=== PATIENT | male | born 1980 | race Hispanic/Latino ===

== ENCOUNTER 2024-09-12 02:35 | Emergency (ER) | payer OTHER ==
[~2024-09-12] VITALS: Ht 180.3 cm; Wt 99.3 kg
[2024-09-12] MEDS: LACTATED RINGERS 1000ML IV STA ×2 (03:22→04:37)
[2024-09-12 03:23] LABS: BASOPHILS # (AUTO) 0.04 K/uL (0.00-0.20); BASOPHILS % (AUTO) 0.5 % (0.0-5.0); EOSINOPHILS # (AUTO) 0.15 K/uL (0.00-0.70); EOSINOPHILS % (AUTO) 1.8 % (0.0-8.0); HEMATOCRIT 37.9 % (42-54); IMMATURE GRANULOCYTE ABSOLUTE 0.06 K/uL (0-1); LYMPHOCYTES # (AUTO) 2.1 K/uL (1.0-4.8); LYMPHOCYTES % (AUTO) 25.3 % (21.0-51.0); MEAN CORPUSCULAR HEMOGLOBIN 28.7 pg (27.0-33.0); MEAN CORPUSCULAR HGB CONC 34.8 g/dL (32.0-36.0); MEAN CORPUSCULAR VOLUME 82.4 fL (79-99); MONOCYTES # (AUTO) 0.6 K/uL (0.1-1.0); MONOCYTES % (AUTO) 6.9 % (3.0-13.0); NEUTROPHILS # (AUTO) 5.4 K/uL (1.8-7.7); NEUTROPHILS % (AUTO) 64.8 % (40.0-77.0); PLATELET COUNT (AUTO) 164 K/uL (130-400); RED CELL DISTRIBUTION WIDTH 12.1 % (11.0-15.5); WHITE BLOOD COUNT (AUTO) 8.3 K/uL (4.8-10.8)
[2024-09-12] MEDS: ketOROlac 30MG VIAL (30MG/ML) IVP ONE (03:23)
[2024-09-12] MEDS: CYCLOBENZAPRINE HCL 10 MG TABLET PO ONE (03:23)
[2024-09-12 03:33] LABS: CREATININE 0.7 mg/dL (0.5-1.3)
--- NOTE | 2024-09-12 04:25 | ERN ---
General Chief Complaint: Neck Pain Stated Complaint: C/O NECK PAIN WITH SHOULDER,JOINT PAIN Time Seen by MD: 02:44 Source: patient History of Present Illness Initial Comments Patient has new onset pain across the top of his chest his right neck to the parietal region, both shoulders both elbows in his hands have joint pain. He has no nausea or vomiting or diarrhea. No fever no cough no upper respiratory tract infections he works as a pipefitter welder outside no past medical history Timing/Duration: 4-6 hours Allergies: Coded Allergies: No Known Allergies (Unverified Allergy, Unknown, 09/12/24) Past Medical History Past Medical History: No Pertinent History Past Surgical History: None Constitutional: (-) chills, (-) diaphoresis, (-) fever, (-) malaise, (-) wea kness, (-) other documentation EENTM: (-) eye pain, (-) blurred vision, (-) tearing, (-) double vision, (-) ear pain, (-) ear discharge, (-) nose pain, (-) nose congestion, (-) throat pain, (-) Throat swelling, (-) mouth pain, (-) tooth pain, (-) mouth swelling, (-) other documentation Respiratory: (-) cough, (-) orthopnea, (-) short of breath, (-) stridor, (-) wheezing, (-) other documentation Cardiovascular: (+) chest pain, (+) edema, (+) palpitations, (+) syncope, (+) dyspnea on exertion, (+) other documentation Gastrointestinal/Abdominal: (-) nausea, (-) vomiting, (-) diarrhea, (-) abdominal pain, (-) abdominal distention, (-) constipation, (-) rectal bleeding, (-) dark stool/melena, (-) other documentation Musculoskeletal: (+) Neck pain, (+) back pain, (+) Flank Pain, (+) joint pain, (+) joint swelling, (+) muscle pain, (+) muscle stiffness, (+) gout, (+) other documentation Physical Exam General Appearance: (+) mild distress Orientation: (+) alert, (+) oriented x 3 Head/Face Trauma: No Eye: bilateral eye normal inspection, bilateral eye PERRL, bilateral eye EOMI Ear, Nose, Throat: (+) hearing grossly normal, (+) normal ENT inspection, (+) moist mucous membraine Neck: (+) normal inspection, (+) supple, (+) full range of motion, (+) no JVD Respiratory: (+) lungs clear, (+) well ventilated Heart: (+) regular, (+) no gallop Vascular: (+) no edema Gastrointestinal: (+) soft, (+) non-tender, (+) bowel sound present Results Laboratory and Microbiology Lab and Micro Result Laboratory Tests Test 09/12/24 03:17 09/12/24 04:41 09/12/24 04:58 White Blood Count 8.3 K/uL (4.8-10.8) Red Blood Count 4.60 MIL/uL (4.50-6.20) Hemoglobin 13.2 g/dL (14.0-18.0) L Hematocrit 37.9 % (42-54) L Mean Corpuscular Volume 82.4 fL (79-99) Mean Corpuscular Hemoglobin 28.7 pg (27.0-33.0) Mean Corpuscular Hemoglobin Concent 34.8 g/dL (32.0-36.0) Red Cell Distribution Width 12.1 % (11.0-15.5) Platelet Count 164 K/uL (130-400) Mean Platelet Volume 10.9 fL (7.5-10.5) H Immature Granulocyte % (Auto) 0.7 % (0-1) Neutrophils (%) (Auto) 64.8 % (40.0-77.0) Lymphocytes (%) (Auto) 25.3 % (21.0-51.0) Monocytes (%) (Auto) 6.9 % (3.0-13.0) Eosinophils (%) (Auto) 1.8 % (0.0-8.0) Basophils (%) (Auto) 0.5 % (0.0-5.0) Neutrophils # (Auto) 5.4 K/uL (1.8-7.7) Lymphocytes # (Auto) 2.1 K/uL (1.0-4.8) Monocytes # (Auto) 0.6 K/uL (0.1-1.0) Eosinophils # (Auto) 0.15 K/uL (0.00-0.70) Basophils # (Auto) 0.04 K/uL (0.00-0.20) Absolute Immature Granulocyte (auto 0.06 K/uL (0-1) Nucleated Red Blood Cells 0.0 % (0.0-0.19) Sodium Level 140 mmol/L (136-145) Potassium Level 4.0 mmol/L (3.5-5.1) Chloride Level 106 mmol/L (101-111) Carbon Dioxide Level 27 mmol/L (21-32) Blood Urea Nitrogen 19 mg/dL (7-18) H Creatinine 0.7 mg/dL (0.5-1.3) Glomerular Filtration Rate Calc 118 mL/min (>90) Random Glucose 96 mg/dL (70-105) Total Calcium 8.4 mg/dL (8.5-10.1) L Troponin I High Sensitivity 5 ng/L (4-75) Influenza Type A Antigen Negative For Type A Influenza Type B Antigen Negative For Type B SARS-CoV-2 Antigen (Rapid) PRESUMPTIVE NEGATIVE Group A Streptococcus Rapid negative (NEGATIVE) Urine Color YELLOW (YELLOW) Urine Appearance CLEAR (CLEAR) Urine pH 6.0 (5.0-8.0) Urine Specific [place] 1.027 (1.001-1.031) Urine Protein NEGATIVE mg/dL (NEGATIVE) Urine Glucose (UA) NEGATIVE mg/dL (NEGATIVE) Urine Ketones NEGATIVE mg/dL (NEGATIVE) Urine Occult Blood NEGATIVE (NEGATIVE) Urine Nitrate NEGATIVE (NEGATIVE) Urine Bilirubin NEGATIVE mg/dL (NEGATIVE) Urine Urobilinogen 2.0 mg/dL (0.2-1.0) H Urine Leukocyte Esterase NEGATIVE [place]/uL MDM Patient has a plethora of complaints and explanations for them could range from dehydration to overexertion to urinary tract infection to influenza to an acute CT. I have ordered the chest pain protocol labs and bolused the patient 2 L of fluid. I will also swab his nose for COVID strep and influenza. Patient's laboratory studies have all returned negative. After 2 L of fluid the patient feels better and ready to go home. He can follow-up with his primary care doctor. We will give him a note for work. ED Course Orders Procedure Category Date Status Time Basic Metabolic Panel LAB 09/12/24 Complete 03: Cbc With Differential LAB 09/12/24 Complete 03:01 Troponin I High LAB 09/12/24 Complete Sensitivity 03:01 12 Lead Ekg Tracing- EKG 09/12/24 Logged Technical 03:01 Cyclobenzaprine Hcl PHA 09/12/24 Complete (Cyclobenzaprine Hcl 03:30 Ketorolac PHA 09/12/24 Complete Tromethamine 30mg/Ml 03:30 Lactated Ringers PHA 09/12/24 Complete 1000ml (Lactated 03:01 Lactated Ringers PHA 09/12/24 Complete 1000ml (Lactated 04:21 Urinalysis Profile LAB 09/12/24 Complete 04:26 Rapid (Group A Strep) LAB 09/12/24 Complete 04:26 Covid19 (Sars Antigen LAB 09/12/24 Complete Rapid) 04:26 Influenza Type A & B, LAB 09/12/24 Complete Rapid 04:26 Current Medications Medications (Trade) Dose Ordered Sig/Uzair Route PRN Reason Start Time Stop Time Status Last Admin Dose Admin Cyclobenzaprine HCl (Cyclobenzaprine HCl) 10 mg ONCE ONCE PO 09/12/24 03:30 09/12/24 03:31 DC 09/12/24 03:23 Ketorolac Tromethamine (toRADol) 30 mg ONCE ONCE IVP 09/12/24 03:30 09/12/24 03:31 DC 09/12/24 03:23 Lactated Ringer's (Lactated Ringers 1000ml) 1,000 ml BOLUS STAT IV 09/12/24 03:01 09/12/24 03:05 DC 09/12/24 03:22 Lactated Ringer's (Lactated Ringers 1000ml) 1,000 ml BOLUS STAT IV 09/12/24 04:21 09/12/24 04:24 DC 09/12/24 04:37 Vital Signs Date Time Temp Pulse Resp B/P (MAP) Pulse Ox O2 Delivery O2 Flow Rate FiO2 09/12/24 03:15 98.2 72 18 121/78 98 Room Air* 0 21 09/12/24 02:37 98.4 77 20 140/83 99 Room Air DX & DISP Disposition: Discharge Departure Impression: Primary Impression: Dehydration after exertion Condition: Stable Additional Instructions: Please return if you have these same symptoms again. It does appear that your simply dehydrated. All of your laboratory work has come back normal. You do not have the flu. Referrals: SELF,REFERRAL (PCP) MARILYNN LAND MD September 12, 2024 04:25
[2024-09-12 04:56] LABS: RAPID GROUP A STREP negative (NEGATIVE)
[2024-09-12 05:06] LABS: COVID19 (SARS ANTIGEN RAPID) PRESUMPTIVE NEGATIVE (NEGATIVE); INFLUENZA TYPE A Negative For Type A (NEGATIVE); INFLUENZA TYPE B Negative For Type B (NEGATIVE)
[2024-09-12 05:17] LABS: APPEARANCE,URINE CLEAR (CLEAR); BILIRUBIN,URINE NEGATIVE (NEGATIVE); COLOR,URINE YELLOW (YELLOW); GLUCOSE, URINE (UA) NEGATIVE (NEGATIVE); KETONES,URINE NEGATIVE (NEGATIVE); LEUKOCYTE ESTERASE ,URINE NEGATIVE Leu/uL (NEGATIVE); NITRATE,URINE NEGATIVE (NEGATIVE); OCCULT BLOOD,URINE NEGATIVE (NEGATIVE); PROTEIN,URINE NEGATIVE (NEGATIVE)
[2024-09-12 05:18] LABS: ADD UA MICROSCOPIC NO
[2024-09-12 06:18] VITALS: BP 118/76; PULSE 74; RESP 16; TEMP 98; O2SAT 100
--- NOTE | 2024-09-12 06:42 | EKG ---
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
== END 2024-09-12 06:19 | disposition home or self-care (01) ==
LOC: EDH 02:35
DX: E86.0 Dehydration (principal); Z20.822 Contact with and (suspected) exposure to COVID-19
CPT/HCPCS: 99284; 96374; 87426; 84484; 80048; 85025; 87880; 87804 ×2; 81003; 36415; 93005; J1885; J7120 ×2